=== PATIENT | female | born 1965 | race American Indian/Alaskan Native ===

== ENCOUNTER 2016-10-31 08:50 | Day surgery (SDC) | payer OTHER ==
[~2016-10-31 08:50] MED LIST: ANCEF/STERILE WATER 2 GM/20 ML IV NR
--- NOTE | 2016-10-31 10:57 | Anesthesia Consultation ---
Anesthesia Consult and Med Hx Date of service: 10/31/16 - Airway Anesthetic Teeth Evaluation: Good ROM Head & Neck: Adequate Mental/Hyoid Distance: Adequate Mallampati Class: Class II Intubation Access Assessment: Probably Good - Pulmonary Exam CTA: Yes - Cardiac Exam Cardiac Exam: RRR - Pre-Operative Health Status ASA Pre-Surgery Classification: ASA3 Proposed Anesthetic Plan: MAC - Pulmonary Hx Sleep Apnea: No (HIGH RISK ON SLEEP APNEA SCREEN) - Cardiovascular System Hx Hypertension: Yes Hx Heart Murmur: Yes - Central Nervous System Hx Back Pain: Yes - Endocrine Hx Hypothyroidism: Yes - Hematic Hx Anemia: Yes Hx Sickle Cell Disease: Yes (TRAIT ONLY) - Other Systems Hx Alcohol Use: No Hx Substance Use: No Hx Cancer: No - Additional Comments Anesthesia Medical History Comments: seasonal allergy, currently stuffed and itchy eyes
--- NOTE | 2016-10-31 10:57 | Anesthesia Day of Surgery ---
Anesthesia Day of Surgery - Day of Surgery Patient Examined: Yes Patient H&P Reviewed: Yes Patient is NPO: Yes
[2016-10-31] MEDS ORDERED: PEPCID IV NR (11:00)
[2016-10-31] MEDS ORDERED: VERSED IV NR (11:00)
[2016-10-31] MEDS ORDERED: NACL 0.9% 1000 ML 1,000 ML IV SCH (11:00)
[2016-10-31 11:07] LABS: Hematocrit 34.7 % (30.3-42.9); Hemoglobin 11.2 gm/dl (10.1-14.3)
[2016-10-31] MEDS ORDERED: DIPRIVAN 10 MG/ML IV ONE ×2 (11:58→12:19)
[2016-10-31] MEDS ORDERED: XYLOCAINE MPF 2% ONE (11:58)
[2016-10-31] MEDS ORDERED: SUBLIMAZE ONE (12:06)
[2016-10-31] MEDS ORDERED: XYLOCAINE 1% 20 mL ONE (12:09)
[2016-10-31] MEDS ORDERED: MARCAINE-EPI/PF 0.25%-1:200,000 INFILTRATI ONE ×2 (12:09→12:30)
[2016-10-31] MEDS ORDERED: XYLOCAINE 1% 20 mL INFILTRATI ONE (12:30)
[2016-10-31] MEDS ORDERED: NACL 0.9% IR ONE (12:30)
--- NOTE | 2016-10-31 12:39 | Post Operative Note ---
Pre-op diagnosis: Soft Tissue mass Left thigh Post-op diagnosis: same Findings: 7cmx 5cm lipoma Procedure: Excision Soft Tissue mass left thigh Anesthesia: MAC Surgeon: MORGAN REID Estimated blood loss: minimal Pathology: list (soft tissue mass) Specimen disposition: to lab Condition: stable Disposition: PACU
--- NOTE | 2016-10-31 12:41 | Discharge Summary ---
Short Stay Discharge Plan Activity: no restrictions Weight Bearing Status: Full Weight Bearing Diet: regular Wound: open to air Follow up with: PRIMARY CARE, [Primary Care Provider] - 7 Days Prescriptions: HYDROcodone/APAP 5-325 [Beeson 5-325 mg TAB] 1 each PO Q6HR PRN #20 tablet PRN Reason: Pain
[2016-10-31 13:28] VITALS: BP 155/86
--- NOTE | 2016-10-31 15:38 | Operative Report ---
PREOPERATIVE DIAGNOSIS: Soft tissue mass, left thigh. POSTOPERATIVE DIAGNOSIS: Soft tissue mass, left thigh. OPERATIVE PROCEDURE: Excision of soft tissue mass, left thigh. ANESTHESIA: Local 1% Xylocaine with 0.25% Marcaine and IV sedation. INDICATIONS: A 51-year-old female patient presenting with a symptomatic visible and palpable mass in the left thigh. FINDINGS: A subcutaneous mature lipoma measuring 6-7 x 5 cm in the left mid lateral to posterior thigh. Specimen sent for histopathological examination. DESCRIPTION OF PROCEDURE: After the patient was placed in left lateral position with pillows and other protected devices, the operative area prepped and draped. IV sedation was given. Skin and subcutaneous tissue overlying the mass were adequately infiltrated with the local anesthetic. A 3.5 to 4 cm transverse incision was made and subcutaneous tissue was divided. The mass was completely removed and bleeding vessels were cauterized. Hemostasis was adequate. Subdermal tissue approximated with 3-0 Vicryl and skin with 4-0 Monocryl sutures. She tolerated the procedure well. JOB# [id number] KARTHIKEYANN/PAOLA
--- NOTE | 2016-10-31 17:30 | Post Anesthesia Evaluation ---
- Post Anesthesia Evaluation Patient Participated: Yes Airway Patent: Yes Stable Respiratory Function: Yes Nausea/Vomiting: No Temp > 96.8F: Yes Pain Manageable: Yes Adequeate Hydration: Yes Anesthesia Complications: No
== END 2016-10-31 14:18 | disposition home or self-care (01) ==
LOC: OR 08:50
PROVIDERS: ATTEND Surgery
DX: D17.24 Benign lipomatous neoplasm of skin and subcutaneous tissue of left leg (principal); D57.3 Sickle-cell trait; M19.90 Unspecified osteoarthritis, unspecified site; I10 Essential (primary) hypertension; E03.9 Hypothyroidism, unspecified; E66.9 Obesity, unspecified; Z68.38 Body mass index [BMI] 38.0-38.9, adult; Z98.890 Other specified postprocedural states; Z79.899 Other long term (current) drug therapy; Z88.2 Allergy status to sulfonamides; Z91.040 Latex allergy status; Z91.010 Allergy to peanuts; Z91.013 Allergy to seafood; Z91.018 Allergy to other foods; Z72.89 Other problems related to lifestyle; Z82.49 Family history of ischemic heart disease and other diseases of the circulatory system
CPT/HCPCS: 27337; 36415; 81025; 85014; 85018; 88304; J0690; J2250; J2704; J3010; J7030; 88307